=== PATIENT | female | born 1965 | race Caucasian/White ===

== ENCOUNTER → 2019-05-18 | Day surgery (SDC) | payer OTHER ==
[~2019-05-18] MED LIST: IV RINGERS,LACTATED 1000ML 1,000 ML IV SCH; LIDOCAINE 1% PF 2 ML VIAL. ID PRN; LIDOCAINE 2% PF 5 ML VIAL. ONE; MIDAZOLAM HCL/PF 2 MG/2 ML VIAL. IV PRN; OMEP40CA5 PO; PROPOFOL 40 ML IV ONE; TRAZ-118 PO; fentaNYL PF VIAL 100 MCG/2 ML VIAL IV PRN
[2019-05-18 09:10] VITALS: BP 116/71
--- NOTE | 2019-05-20 15:05 | PATHOLOGY ---
[facility] Accession Number: [id number] . 01 Material submitted: . esophagus - DISTAL ESOPHAGUS BIOPSY. Modifiers: distal . 01 Clinical history: . Epigastric pain, CRC screen . 02 Diagnosis: Esophageal biopsies, distal esophagus: - Segments of hyperplastic squamous esophageal mucosa showing chronic inflammation, consistent with reflux esophagitis. . (JPM:mml; 05/20/2019) [facility]/05/20/2019 . 02 Comment: Sections of the distal esophageal biopsy reveal segments of tangentially-oriented, hyperplastic squamous esophageal mucosa showing focal chronic inflammation. Focally, there are a few intraepithelial eosinophils. The findings are consistent with reflux esophagitis. There is no evidence of Birch's change, dysplasia, or malignancy. . (JPM:mml; 05/20/2019) . 02 Electronically signed: . Chase Pozo MD, Pathologist NPI- [id number] . 01 Gross description: . Received in formalin labeled "Affeldt, Rafaela, distal esophagus BX," are 4 segments of fontana soft tissue measuring 1.0 x 0.9 x 0.1 cm in aggregate dimensions and ranging from 0.4 to 0.6 cm in maximum dimension. The specimen is submitted entirely in cassette A1. (TSD; 05/18/2019) TOB/TOB . 02 Pathologist provided ICD-10: K21.0 . 02 CPT . 528143 Specimen Comment: A courtesy copy of this report has been sent to Specimen Comment: [phone], . Specimen Comment: Report sent to / DR BARNETT Performed at: [address], [place], [place] [id number] MD Venkat Das MD Phone: [phone] Performed at: [address] [id number] MD Chase Pozo MD Phone: [phone]
== END ==
LOC: SURG 07:02
PROVIDERS: ATTEND Internal Medicine Gastroenterology
DX: Z12.11 Encounter for screening for malignant neoplasm of colon (principal); K21.0 Gastro-esophageal reflux disease with esophagitis; K64.0 First degree hemorrhoids; K63.89 Other specified diseases of intestine
CPT/HCPCS: 43239; 45378; 88305; J2001; J2704

== ENCOUNTER → 2019-06-06 | Outpatient (CLI) | payer OTHER ==
[2019-05-18 09:10] VITALS: BP 116/71
[~2019-06-06] VITALS: Ht 165.1 cm; Wt 54.4 kg
[~2019-06-06] MED LIST changes: -IV RINGERS,LACTATED 1000ML 1,000 ML IV SCH; -LIDOCAINE 1% PF 2 ML VIAL. ID PRN; -LIDOCAINE 2% PF 5 ML VIAL. ONE; -MIDAZOLAM HCL/PF 2 MG/2 ML VIAL. IV PRN; -PROPOFOL 40 ML IV ONE; +SINCALIDE 1.09 MCG in IV NORMAL SALINE 50ML 30 ML IV ONE; -fentaNYL PF VIAL 100 MCG/2 ML VIAL IV PRN
--- NOTE | 2019-06-06 09:20 | RAD ---
CLINICAL HISTORY: EPIGASTRIC PAIN COMPARISON: None available. TECHNIQUE: Limited ultrasound examination of the right upper quadrant of the abdomen was performed FINDINGS: Liver: The liver measures 14.4 cm in length in the right mid clavicular line. Hepatic echogenicity is normal and the margin is smooth. There is no focal abnormality of the liver. Portal and hepatic venous flow is confirmed with normal waveforms. Gallbladder/Biliary: The gallbladder is normal in appearance without evidence for cholelithiasis. There is no wall thickening or pericholecystic fluid. There is no pain with direct transducer pressure over the gallbladder.The common bile duct measures 0.3 cm. The right kidney measures 9.6 cm in bipolar length. No focal renal lesion. No hydronephrosis. Normal renal cortical echogenicity. There is no free fluid in the subhepatic space. IMPRESSION: Essentially normal sonographic survey of the right upper quadrant. Electronically signed by: Pool Vásquez MD (06/06/2019 9:17 AM) [facility]
--- NOTE | 2019-06-06 11:38 | RAD ---
Examination: NM HEPATOBILIARY SCAN W PHARM History: Abdominal pain for 2 months Comparison/Correlation: None Findings: 5.5 mCi technetium 99m mebrofenin was intravenously administered for purposes of hepatobiliary scintigraphy. Uptake of radiotracer by liver is normal. Radiotracer seen within the gallbladder at 10 minutes. Radiotracer is within small bowel by 20 minutes. While radiotracer does pass into the small bowel during the course exam, it is of somewhat smaller rate than expected. No biliary dilatation. After 60 minutes, 1.09 mcg CCK was administered over course of 30 minutes. Gallbladder ejection fraction of 73% is present. Impression: Normal hepatobiliary scintigraphy with no evidence of cholecystitis. Normal gallbladder ejection fraction. Electronically signed by: Juan Bhakta MD (06/06/2019 11:35 AM) [id number]
== END | disposition home or self-care (01) ==
LOC: US 07:17
PROVIDERS: ATTEND Internal Medicine Gastroenterology
DX: R10.13 Epigastric pain (principal)
CPT/HCPCS: 76705; 78227; J2805; A9537

== ENCOUNTER → 2019-06-15 | Outpatient (CLI) | payer OTHER ==
[2019-05-18 09:10] VITALS: BP 116/71
[~2019-06-15] MED LIST changes: -SINCALIDE 1.09 MCG in IV NORMAL SALINE 50ML 30 ML IV ONE
--- NOTE | 2019-06-15 14:47 | RAD ---
EXAM: Nuclear gastric emptying scan. HISTORY: Pain COMPARISON: Sonogram dated 06/04/2019. TECHNIQUE: Serial static images were obtained over the stomach following oral administration of 2 mCi of 99m-Tc sulfur colloid in an egg based meal. FINDINGS: The stomach empties into the small bowel without evidence of reflux in the area of the esophagus. The estimated time for half emptying of gastric contents, i.e. 'gastric emptying time' is 91 minutes (normal is 66 +/- 22 minutes). There is 74% retained tracer activity within the stomach at one hour, 55% retained tracer activity within the stomach at 2 hours, 36% retained tracer activity within the stomach at 3 hours, and 28% retained tracer activity within the stomach at 4 hours. IMPRESSION: Slightly delayed gastric emptying. Electronically signed by: Leona Arciniega MD (06/15/2019 2:44 PM) [facility]
== END | disposition home or self-care (01) ==
LOC: NM 09:11
PROVIDERS: ATTEND Internal Medicine Gastroenterology
DX: R10.13 Epigastric pain (principal)
CPT/HCPCS: 78264; A9541